=== PATIENT | female | born 1995 | race Two or more races ===

== ENCOUNTER 2017-07-23 18:09 | Inpatient (IN) | payer MEDICAID ==
[~2017-07-23] VITALS: Ht 154.9 cm; Wt 42.0 kg
[2017-07-23] MEDS ORDERED: insulin regular, human 10 units/0.1 ml syringe IV ONE (18:55)
[2017-07-23] MEDS ORDERED: normal saline 1000ML IV soln IVB ONE (18:55)
[2017-07-23 19:33] LABS: HCG SERUM QL NEGATIVE
[2017-07-23 19:35] LABS: ISTAT ANION GAP 19 (8-12); ISTAT BUN 18 mg/dL (6-19); ISTAT CL 115 mmol/L (99-107); ISTAT CREATININE 0.3 mg/dL (0.6-1.1); ISTAT HGB 17.3 g/dl (12.0-16.0); ISTAT Hct 51 %PCV (35-48); ISTAT IONIZED CALCIUM 1.26 mmol/L (1.03-1.32); ISTAT NA 140 mmol/L (135-145); ISTAT eGFR > 90 ML/MIN
[2017-07-23 20:04] LABS: ISTAT GLUCOSE 565 mg/dL (70-104); ISTAT TOTAL CO2 6 mmol/L (24-32)
[2017-07-23] MEDS ORDERED: insulin regular, human 100 UNIT in normal saline 100ml IV soln 100 ML IV PRN ×2 (20:05)
[2017-07-23 20:11] LABS: ALANINE AMINOTRANSFERASE 21 U/L (12-78); ALBUMIN 3.9 G/DL (3.4-5.0); ALBUMIN/GLOBULIN RATIO 0.8 (1.1-1.5); ALKALINE PHOSPHATASE 211 IU/L (20-180); ANION GAP 36 (8-16); ASPARTATE AMINO TRANSFERASE 15 U/L (10-37); BILIRUBIN,TOTAL 0.4 MG/DL (0.1-1.0); BLOOD UREA NITROGEN 18 MG/DL (7-18); BUN/CREATININE RATIO 18.6 (6.6-38.0); CALCIUM 8.9 MG/DL (8.5-10.1); CHLORIDE 98 MMOL/L (99-107); CREATININE 0.97 MG/DL (0.40-0.90); ETHANOL < 0.010 GM/DL (0.0-0.010); SODIUM 140 MMOL/L (135-145); TOTAL PROTEIN 8.8 G/DL (6.4-8.2); eGFR 74 ML/MIN
[2017-07-23 20:14] LABS: GLUCOSE 559 MG/DL (70-104)
[2017-07-23 20:15] LABS: POTASSIUM 3.7 MMOL/L (3.5-5.1)
[2017-07-23] MEDS ORDERED: morphine 4 MG/ML inj SYRINge IV ONE (20:15)
[2017-07-23 20:20] LABS: CLARITY,URINE CLEAR (Clear); COLOR,URINE YELLOW (Yellow); GLUCOSE, URINE >=1000 mg/dl (Neg); KETONES,URINE >=80 mg/dl (Neg); LEUKOCYTE ESTERASE ,URINE NEGATIVE (Neg); NITRITES, URINE NEGATIVE (Neg); OCCULT BLOOD,URINE NEGATIVE (Neg); PH,URINE 5.5 (4.8-8.0); PROTEIN,URINE 30 mg/dl (Neg); UROBILINOGEN,URINE 0.2 E.U/dL (0.2-1.0)
[2017-07-23 20:21] LABS: URINE AMPHETAMINE SCREEN NEGATIVE (Neg); URINE BARBITUATE SCREEN NEGATIVE (Neg); URINE BENZODIAZEPINES SCREEN NEGATIVE (Neg); URINE CANNABINOID SCREEN NEGATIVE (Neg); URINE COCAINE SCREEN NEGATIVE (Neg); URINE METHADONE SCREEN NEGATIVE (Neg); URINE OPIATE SCREEN NEGATIVE (Neg); URINE PHENCYCLIDINE SCREEN NEGATIVE (Neg)
[2017-07-23] MEDS ORDERED: insulin regular, human 10 units/0.1 ml syringe SQ PRN ×2 (20:30→21:10)
[2017-07-23] MEDS ORDERED: potassium CL 20mEq in D5-1/2NS 1,000 ML IV PRN (20:30)
[2017-07-23] MEDS ORDERED: normal saline 1000ml 1,000 ML IV SCH (20:30)
[2017-07-23 20:47] LABS: UA COLLECTION TYPE STRAIGHT CATH
[2017-07-23 20:55] LABS: ABG OXYGEN SATURATION 98.2 % (95-98); ABG PH (T) 7.066 (7.350-7.450); ABG PO2 (T) 138.8 mmHg (83-108); ALLEN'S TEST Negative; FCOHb 0.8 % (0.5-1.5); FMetHb 0.3 % (0.3-1.12); FO2Hb 97.1 % (94-100); PATIENT TEMPERATURE 36.5; RESPIRATORY RATE (OBSERVED) 32 b/min
[2017-07-23 20:58] LABS: BACTERIA,URINE NONE SEEN /HPF (Neg); RBC,URINE NONE SEEN /HPF (0-2); SQUAMOUS EPITHELIAL CELL,UR FEW /LPF (FEW); WBC,URINE 0-4 /HPF (0-4)
[2017-07-23] MEDS ORDERED: sodium bicarbonate (8.4%) inj. 50 MEQ in sodium chloride 0.45% 500ml 250 ML IV PRN (21:07)
[2017-07-23] MEDS: normal saline 1000ml 1,000 ML IV SCH ×4 (21:07→22:33)
[2017-07-23] MEDS ORDERED: insulin regular, DKA only 100 UNIT in normal saline 100ml IV soln 99 ML IV SCH ×2 (21:07)
[2017-07-23] MEDS ORDERED: sodium bicarbonate (8.4%) inj. 100 MEQ in sodium chloride 0.45% 500ml 500 ML IV PRN (21:07)
[2017-07-23] MEDS ORDERED: potassium Cl 40MEQ/NS 500ml 500 ML IV PRN ×2 (21:10)
[2017-07-23] MEDS ORDERED: potassium Cl 20 mEq SR tablet PO PRN (21:10)
[2017-07-23] MEDS ORDERED: sodium phosphate inj. 15 MMOL in dextrose 5%-water 150 ML IV PRN (21:10)
[2017-07-23] MEDS ORDERED: magnesium 2GM in 50ml NS 50 ML IV PRN (21:10)
[2017-07-23] MEDS ORDERED: ondansetron/PF 4mg/2ml inj IV PRN (21:10)
[2017-07-23] MEDS ORDERED: morphine 4 MG/ML inj SYRINge IV PRN (21:10)
[2017-07-23] MEDS ORDERED: ipratropium/albuterol 3ml nebule NEB PRN (21:10)
[2017-07-23] MEDS ORDERED: sodium phosphate inj. 30 MMOL in dextrose 5%-water 250 ML IV PRN (21:10)
[2017-07-23] MEDS ORDERED: acetaminophen 650mg rectal suppository RC PRN (21:10)
[2017-07-23] MEDS ORDERED: magnesium Cl slow-release 64mg tablet PO PRN (21:10)
[2017-07-23] MEDS: K, MAG and/or Phos replacement - Verify level? MC SCH (21:10)
[2017-07-23] MEDS ORDERED: magnesium 4gm in 100ml NS 100 ML IV PRN (21:10)
[2017-07-23] MEDS: insulin regular, DKA only 100 UNIT in normal saline 100ml IV soln 99 ML IV SCH ×2 (21:23)
[2017-07-23] MEDS: morphine 4 MG/ML inj SYRINge IV PRN ×2 (21:36→22:43)
[2017-07-23 22:00] VITALS: BP 154/97
[2017-07-23 22:01] LABS: ABG BASE EXCESS -27.6 mmol/L (-2.0-3.0); ABG HCO3 2.6 mmol/L (22.0-26.0); ABG OXYGEN SATURATION 97.2 % (95-98); ABG PCO2 (T) 11.3 mmHg (32.0-45.0); ABG PO2 (T) 117.8 mmHg (83-108); ALLEN'S TEST Positive; FCOHb 0.3 % (0.5-1.5); FMetHb 0.5 % (0.3-1.12); FO2Hb 96.4 % (94-100); PATIENT TEMPERATURE 36.5; RESPIRATORY RATE (OBSERVED) 32 b/min; TOTAL HEMOGLOBIN 15.2 G/dl (12.0-16.0)
[2017-07-23 22:34] LABS: BASOPHILS # (AUTO) 0.1 X10'3 (0-0.2); BASOPHILS % (AUTO) 0.5 % (0-1); EOSINOPHILS # (AUTO) 0.3 X10'3 (0-0.9); EOSINOPHILS % (AUTO) 1.4 % (0-6); HEMATOCRIT 44.5 % (35.0-45.0); LYMPHOCYTES # (AUTO) 1.8 X10'3 (1.1-4.8); LYMPHOCYTES % (AUTO) 7.5 % (21-51); MEAN CORPUSCULAR HEMOGLOBIN 30.9 PG (27.0-31.0); MEAN CORPUSCULAR HGB CONC 33.8 % (33.0-36.5); MEAN CORPUSCULAR VOLUME 91.4 FL (78-98); MEAN PLATELET VOLUME 8.1 FL (7.4-10.4); MONOCYTES # (AUTO) 0.9 X10'3 (0-0.9); MONOCYTES % (AUTO) 3.9 % (2-12); NEUTROPHILS # (AUTO) 20.3 X10'3 (1.8-7.7); NEUTROPHILS % (AUTO) 86.7 % (42-75); PLATELET COUNT 488 X10'3 (140-440); RED BLOOD COUNT 4.87 X10'6 (4.20-5.60); RED CELL DISTRIBUTION WIDTH 14.5 % (11.5-14.5); WHITE BLOOD COUNT 23.4 X10'3 (4.5-11.0)
[2017-07-23] MEDS ORDERED: sodium bicarbonate 1 MEQ/1 ml inj ONE (22:34)
[2017-07-23 22:45] LABS: INR 0.9 INR; PROTHROMBIN TIME 9.4 SECONDS (9.0-12.0)
[2017-07-23 22:48] LABS: ALBUMIN 3.4 G/DL (3.4-5.0); BLOOD UREA NITROGEN 18 MG/DL (7-18); BUN/CREATININE RATIO 22.5 (6.6-38.0); CALCIUM 7.4 MG/DL (8.5-10.1); CHLORIDE 108 MMOL/L (99-107); GLUCOSE 443 MG/DL (70-104); PHOSPHORUS 4.6 MG/DL (2.3-4.5); POTASSIUM 3.7 MMOL/L (3.5-5.1); SODIUM 145 MMOL/L (135-145); eGFR > 90 ML/MIN
[2017-07-23 23:00] VITALS: BP 155/112
[2017-07-23 23:02] LABS: ALANINE AMINOTRANSFERASE < 6 U/L (12-78); ALBUMIN/GLOBULIN RATIO 0.8 (1.1-1.5); ALKALINE PHOSPHATASE 186 IU/L (20-180); AMYLASE 88 U/L (25-115); ASPARTATE AMINO TRANSFERASE 10 U/L (10-37); BILIRUBIN,TOTAL 0.4 MG/DL (0.1-1.0); LIPASE 1063 U/L (73-393); TOTAL PROTEIN 7.7 G/DL (6.4-8.2)
[2017-07-23 23:03] LABS: ANION GAP 32 (8-16)
[2017-07-23 23:05] LABS: TOTAL CARBON DIOXIDE < 5 MMOL/L (24-32)
[2017-07-24] VITALS (24 sets, daily range): BP systolic 107–148; BP diastolic 55–92
[2017-07-24] MEDS ORDERED: INSU100C10 SQ
[2017-07-24] MEDS ORDERED: INSU100V9 SQ
[2017-07-24] MEDS: potassium CL 20mEq in D5-1/2NS 1,000 ML IV PRN ×2 (00:23→05:00)
[2017-07-24 01:08] LABS: CLARITY,URINE CLEAR (Clear); COLOR,URINE YELLOW (Yellow); GLUCOSE, URINE >=1000 mg/dl (Neg); KETONES,URINE >=80 mg/dl (Neg); LEUKOCYTE ESTERASE ,URINE NEGATIVE (Neg); NITRITES, URINE NEGATIVE (Neg); OCCULT BLOOD,URINE SMALL (Neg); PH,URINE 5.5 (4.8-8.0); PROTEIN,URINE 30 mg/dl (Neg); UROBILINOGEN,URINE 0.2 E.U/dL (0.2-1.0)
[2017-07-24 01:11] LABS: UA COLLECTION TYPE CLN CATCH MIDSTREAM
[2017-07-24 01:15] LABS: ABG BASE EXCESS -17.8 mmol/L (-2.0-3.0); ABG HCO3 7.6 mmol/L (22.0-26.0); ABG PCO2 (T) 19.1 mmHg (32.0-45.0); ABG PO2 (T) 111.1 mmHg (83-108); ALLEN'S TEST Positive; FCOHb 0.3 % (0.5-1.5); FMetHb 0.3 % (0.3-1.12); FO2Hb 97.4 % (94-100); PATIENT TEMPERATURE 37.1; TOTAL HEMOGLOBIN 14.3 G/dl (12.0-16.0)
[2017-07-24 01:18] LABS: SQUAMOUS EPITHELIAL CELL,UR FEW /LPF (FEW)
[2017-07-24 01:19] LABS: BACTERIA,URINE 2+ /HPF (Neg)
[2017-07-24 01:20] LABS: AMORPHOUS URATES 2+
[2017-07-24 01:21] LABS: FINE GRANULAR CAST 0-3 /LPF (NEGATIVE); MUCUS STRANDS FEW /LPF (Neg)
[2017-07-24] MEDS: K and/or MAG REPLACEMENT MC SCH ×2 (03:00→08:00)
[2017-07-24] MEDS ORDERED: fluconazole 150mg tablet PO ONE (04:20)
[2017-07-24] MEDS: normal saline 1000ml 1,000 ML IV SCH ×5 (05:07→21:07)
[2017-07-24 05:28] LABS: BASOPHILS % (AUTO) 0.3 % (0-1); EOSINOPHILS # (AUTO) 0.3 X10'3 (0-0.9); EOSINOPHILS % (AUTO) 1.5 % (0-6); HEMATOCRIT 36.8 % (35.0-45.0); HEMOGLOBIN 12.5 g/dl (12.0-16.0); LYMPHOCYTES # (AUTO) 3.2 X10'3 (1.1-4.8); LYMPHOCYTES % (AUTO) 16.9 % (21-51); MEAN CORPUSCULAR HEMOGLOBIN 31.1 PG (27.0-31.0); MEAN CORPUSCULAR HGB CONC 34.1 % (33.0-36.5); MEAN CORPUSCULAR VOLUME 91.1 FL (78-98); MEAN PLATELET VOLUME 8.1 FL (7.4-10.4); MONOCYTES # (AUTO) 0.8 X10'3 (0-0.9); MONOCYTES % (AUTO) 4.1 % (2-12); NEUTROPHILS # (AUTO) 14.5 X10'3 (1.8-7.7); NEUTROPHILS % (AUTO) 77.2 % (42-75); PLATELET COUNT 352 X10'3 (140-440); RED BLOOD COUNT 4.03 X10'6 (4.20-5.60); RED CELL DISTRIBUTION WIDTH 14.3 % (11.5-14.5); WHITE BLOOD COUNT 18.7 X10'3 (4.5-11.0)
[2017-07-24 05:41] LABS: PROTHROMBIN TIME 9.9 SECONDS (9.0-12.0)
[2017-07-24 05:53] LABS: ALANINE AMINOTRANSFERASE 14 U/L (12-78); ALBUMIN 2.6 G/DL (3.4-5.0); ALBUMIN/GLOBULIN RATIO 0.8 (1.1-1.5); ALKALINE PHOSPHATASE 110 IU/L (20-180); ANION GAP 16 (8-16); ASPARTATE AMINO TRANSFERASE 9 U/L (10-37); BILIRUBIN,TOTAL 0.2 MG/DL (0.1-1.0); BLOOD UREA NITROGEN 16 MG/DL (7-18); BUN/CREATININE RATIO 24.6 (6.6-38.0); CALCIUM 6.9 MG/DL (8.5-10.1); CHLORIDE 118 MMOL/L (99-107); CREATININE 0.65 MG/DL (0.40-0.90); GLUCOSE 160 MG/DL (70-104); MAGNESIUM 1.4 MG/DL (1.5-2.4); PHOSPHORUS 1.8 MG/DL (2.3-4.5); POTASSIUM 3.1 MMOL/L (3.5-5.1); SODIUM 148 MMOL/L (135-145); TOTAL PROTEIN 5.8 G/DL (6.4-8.2); eGFR > 90 ML/MIN
[2017-07-24 06:36] LABS: TOTAL CARBON DIOXIDE 14.4 MMOL/L (24-32)
[2017-07-24] MEDS: K, MAG and/or Phos replacement - Verify level? MC SCH (08:00)
[2017-07-24] MEDS ORDERED: insulin Lispro (HumaLOG) vial - multi-dose SQ SCH (09:00)
[2017-07-24 10:33] LABS: ALANINE AMINOTRANSFERASE 12 U/L (12-78); ALBUMIN 2.4 G/DL (3.4-5.0); ALBUMIN/GLOBULIN RATIO 0.8 (1.1-1.5); ALKALINE PHOSPHATASE 97 IU/L (20-180); ANION GAP 10 (8-16); ASPARTATE AMINO TRANSFERASE 9 U/L (10-37); BILIRUBIN,TOTAL 0.1 MG/DL (0.1-1.0); BLOOD UREA NITROGEN 14 MG/DL (7-18); BUN/CREATININE RATIO 23.7 (6.6-38.0); CALCIUM 7.3 MG/DL (8.5-10.1); CHLORIDE 114 MMOL/L (99-107); CREATININE 0.59 MG/DL (0.40-0.90); GLUCOSE 208 MG/DL (70-104); POTASSIUM 3.2 MMOL/L (3.5-5.1); SODIUM 143 MMOL/L (135-145); TOTAL CARBON DIOXIDE 18.6 MMOL/L (24-32); TOTAL PROTEIN 5.3 G/DL (6.4-8.2); eGFR > 90 ML/MIN
[2017-07-24] MEDS ORDERED: insulin glargine (Lantus) pen - multi-dose SQ ONE ×2 (10:55→21:00)
[2017-07-24] MEDS: insulin regular, DKA only 100 UNIT in normal saline 100ml IV soln 99 ML IV SCH ×2 (14:05)
[2017-07-24] MEDS ORDERED: dextrose 50%-water 50ml dispensing syringe IV PRN ×2 (15:00)
[2017-07-24] MEDS ORDERED: glucagon, human recombinant 1mg kit SUBCUT PRN (15:00)
[2017-07-24] MEDS ORDERED: dextrose ORAL solution 15 GM/59 ML bottle PO PRN ×2 (15:00)
[2017-07-24] MEDS ORDERED: MESSAGE TO PHARMACY PO ONE (15:00)
[2017-07-24 15:31] LABS: ABG PCO2 (T) < 10.0 mmHg (32.0-45.0)
[2017-07-24 17:09] LABS: ALANINE AMINOTRANSFERASE 13 U/L (12-78); ALBUMIN 2.3 G/DL (3.4-5.0); ALBUMIN/GLOBULIN RATIO 0.8 (1.1-1.5); ALKALINE PHOSPHATASE 95 IU/L (20-180); ANION GAP 11 (8-16); ASPARTATE AMINO TRANSFERASE 11 U/L (10-37); BILIRUBIN,TOTAL 0.2 MG/DL (0.1-1.0); BLOOD UREA NITROGEN 12 MG/DL (7-18); BUN/CREATININE RATIO 26.7 (6.6-38.0); CALCIUM 7.7 MG/DL (8.5-10.1); CHLORIDE 110 MMOL/L (99-107); CREATININE 0.45 MG/DL (0.40-0.90); GLUCOSE 218 MG/DL (70-104); POTASSIUM 3.7 MMOL/L (3.5-5.1); SODIUM 140 MMOL/L (135-145); TOTAL PROTEIN 5.3 G/DL (6.4-8.2); eGFR > 90 ML/MIN
[2017-07-24] MEDS: insulin Lispro (HumaLOG) vial - multi-dose SQ SCH (18:59)
[2017-07-24] MEDS ORDERED: INSULIN GLARGINE HUM REC ANLOG 28 UNIT SQ SCH (21:00)
[2017-07-24] MEDS ORDERED: insulin glargine (Lantus) pen - multi-dose SQ SCH (21:00)
[2017-07-24 22:50] LABS: ALANINE AMINOTRANSFERASE 13 U/L (12-78); ALBUMIN 2.4 G/DL (3.4-5.0); ALBUMIN/GLOBULIN RATIO 0.8 (1.1-1.5); ALKALINE PHOSPHATASE 101 IU/L (20-180); ANION GAP 12 (8-16); ASPARTATE AMINO TRANSFERASE 13 U/L (10-37); BILIRUBIN,TOTAL 0.2 MG/DL (0.1-1.0); BLOOD UREA NITROGEN 12 MG/DL (7-18); BUN/CREATININE RATIO 25.5 (6.6-38.0); CALCIUM 7.7 MG/DL (8.5-10.1); CHLORIDE 108 MMOL/L (99-107); CREATININE 0.47 MG/DL (0.40-0.90); GLUCOSE 256 MG/DL (70-104); SODIUM 140 MMOL/L (135-145); TOTAL CARBON DIOXIDE 20.1 MMOL/L (24-32); TOTAL PROTEIN 5.4 G/DL (6.4-8.2); eGFR > 90 ML/MIN
[2017-07-24] MEDS: potassium Cl 20 mEq SR tablet PO PRN (22:58)
[2017-07-25] VITALS (12 sets, daily range): BP systolic 105–135; BP diastolic 58–83
[2017-07-25] MEDS: normal saline 1000ml 1,000 ML IV SCH ×3 (01:07→08:14)
[2017-07-25] MEDS: potassium Cl 20 mEq SR tablet PO PRN (04:35)
[2017-07-25 05:32] LABS: BASOPHILS % (AUTO) 0.4 % (0-1); EOSINOPHILS # (AUTO) 0.1 X10'3 (0-0.9); EOSINOPHILS % (AUTO) 1.8 % (0-6); HEMATOCRIT 33.8 % (35.0-45.0); HEMOGLOBIN 11.4 g/dl (12.0-16.0); LYMPHOCYTES # (AUTO) 2.8 X10'3 (1.1-4.8); LYMPHOCYTES % (AUTO) 45.1 % (21-51); MEAN CORPUSCULAR HEMOGLOBIN 30.8 PG (27.0-31.0); MEAN CORPUSCULAR HGB CONC 33.7 % (33.0-36.5); MEAN CORPUSCULAR VOLUME 91.1 FL (78-98); MONOCYTES # (AUTO) 0.4 X10'3 (0-0.9); MONOCYTES % (AUTO) 6.1 % (2-12); NEUTROPHILS # (AUTO) 2.9 X10'3 (1.8-7.7); NEUTROPHILS % (AUTO) 46.6 % (42-75); PLATELET COUNT 269 X10'3 (140-440); RED BLOOD COUNT 3.71 X10'6 (4.20-5.60); RED CELL DISTRIBUTION WIDTH 14.9 % (11.5-14.5); WHITE BLOOD COUNT 6.2 X10'3 (4.5-11.0)
[2017-07-25 05:41] LABS: ALANINE AMINOTRANSFERASE 14 U/L (12-78); ALBUMIN 2.2 G/DL (3.4-5.0); ALBUMIN/GLOBULIN RATIO 0.7 (1.1-1.5); ALKALINE PHOSPHATASE 87 IU/L (20-180); ANION GAP 11 (8-16); ASPARTATE AMINO TRANSFERASE 12 U/L (10-37); BILIRUBIN,TOTAL 0.2 MG/DL (0.1-1.0); BLOOD UREA NITROGEN 9 MG/DL (7-18); BUN/CREATININE RATIO 24.3 (6.6-38.0); CALCIUM 7.7 MG/DL (8.5-10.1); CHLORIDE 111 MMOL/L (99-107); CREATININE 0.37 MG/DL (0.40-0.90); GLUCOSE 203 MG/DL (70-104); MAGNESIUM 1.7 MG/DL (1.5-2.4); POTASSIUM 3.4 MMOL/L (3.5-5.1); SODIUM 144 MMOL/L (135-145); TOTAL CARBON DIOXIDE 22.1 MMOL/L (24-32); TOTAL PROTEIN 5.2 G/DL (6.4-8.2); eGFR > 90 ML/MIN
[2017-07-25] MEDS: K and/or MAG REPLACEMENT MC SCH (06:57)
[2017-07-25] MEDS: K, MAG and/or Phos replacement - Verify level? MC SCH (06:57)
[2017-07-25] MEDS: insulin Lispro (HumaLOG) vial - multi-dose SQ SCH (08:42)
[2017-07-25] MEDS ORDERED: pneumococcal 23-VAL P-sac vacc 25 mcg/0.5ml vial IMVAC ONE (10:00)
== END 2017-07-25 12:11 | disposition home or self-care (01) | DRG 420 ==
LOC: ER 18:10 → ED HOLD 21:07 → EDBEDREQ 21:40 → CICU 2S 21:55
PROVIDERS: ADMIT Internal Medicine Critical Care Medicine; ATTEND Internal Medicine Critical Care Medicine
DX: E10.10 Type 1 diabetes mellitus with ketoacidosis without coma (principal); N76.0 Acute vaginitis; Z23 Encounter for immunization; Z79.4 Long term (current) use of insulin; Z82.49 Family history of ischemic heart disease and other diseases of the circulatory system; Z83.3 Family history of diabetes mellitus
CPT/HCPCS: 36415; 36600; 71045; 74176; 80047; 80053; 80305; 80320; 81001; 82009; 82150; 82803; 82948; 83690; 83735; 84100; 84443; 84484; 84703; 85018; 85025; 85610; 87070; 87088; 90732; 94760; 96361; 96374; 99291; A4353; A6213; C1758; J1815; J2270; J2405; J3475; J3480; J7030; J7060

== ENCOUNTER 2017-11-28 09:20 | Inpatient (IN) | payer OTHER, MEDICAID ==
[2017-11-28] VITALS (10 sets, daily range): BP systolic 99–147; BP diastolic 52–100
[~2017-11-28] VITALS: Ht 157.5 cm; Wt 51.5 kg
[~2017-11-28 09:20] MED LIST: INSU100C10 SQ; INSU100V9 SQ
[2017-11-28] MEDS ORDERED: ondansetron/PF 4mg/2ml inj IV ONE (09:30)
[2017-11-28] MEDS ORDERED: insulin regular, human 10 units/0.1 ml syringe SQ PRN ×2 (09:30→13:05)
[2017-11-28] MEDS ORDERED: normal saline 1000ml 1,000 ML IV SCH ×2 (09:49→13:02)
[2017-11-28] MEDS ORDERED: potassium CL 20mEq in D5-1/2NS 1,000 ML IV PRN (09:49)
[2017-11-28] MEDS ORDERED: potassium Cl 20 mEq SR tablet PO PRN ×3 (09:50→13:05)
[2017-11-28] MEDS ORDERED: potassium Cl 40MEQ/NS 500ml 500 ML IV PRN ×3 (09:50→21:35)
[2017-11-28 09:52] LABS: BASOPHILS % (AUTO) 0.3 % (0-1); EOSINOPHILS % (AUTO) 0.2 % (0-6); HEMATOCRIT 51.3 % (35.0-45.0); HEMOGLOBIN 17.1 g/dl (12.0-16.0); LYMPHOCYTES # (AUTO) 3.8 X10'3 (1.1-4.8); LYMPHOCYTES % (AUTO) 25.7 % (21-51); MEAN CORPUSCULAR HEMOGLOBIN 31.5 PG (27.0-31.0); MEAN CORPUSCULAR HGB CONC 33.3 % (33.0-36.5); MEAN CORPUSCULAR VOLUME 94.6 FL (78-98); MEAN PLATELET VOLUME 8.4 FL (7.4-10.4); MONOCYTES # (AUTO) 0.5 X10'3 (0-0.9); MONOCYTES % (AUTO) 3.2 % (2-12); NEUTROPHILS # (AUTO) 10.4 X10'3 (1.8-7.7); NEUTROPHILS % (AUTO) 70.6 % (42-75); PLATELET COUNT 499 X10'3 (140-440); RED BLOOD COUNT 5.42 X10'6 (4.20-5.60); RED CELL DISTRIBUTION WIDTH 14.8 % (11.5-14.5); WHITE BLOOD COUNT 14.7 X10'3 (4.5-11.0)
[2017-11-28] MEDS: normal saline 1000ml 1,000 ML IV SCH ×2 (09:57→09:58)
[2017-11-28 10:09] LABS: HCG SERUM QL NEGATIVE
[2017-11-28 10:10] LABS: ABG OXYGEN SATURATION 98.1 % (95-98); ABG PO2 (T) 158.6 mmHg (83-108); ALLEN'S TEST Positive; FCOHb 0.1 % (0.5-1.5); FMetHb 0.5 % (0.3-1.12); FO2Hb 97.5 % (94-100); TOTAL HEMOGLOBIN 16.7 G/dl (12.0-16.0)
[2017-11-28 10:15] LABS: ALBUMIN 4.2 G/DL (3.4-5.0); BLOOD UREA NITROGEN 20 MG/DL (7-18); BUN/CREATININE RATIO 19.6 (6.6-38.0); CALCIUM 9.9 MG/DL (8.5-10.1); CHLORIDE 101 MMOL/L (99-107); CREATINE KINASE 38 U/L (26-192); CREATININE 1.02 MG/DL (0.40-0.90); PHOSPHORUS 6.4 MG/DL (2.3-4.5); POTASSIUM 4.2 MMOL/L (3.5-5.1); SODIUM 139 MMOL/L (135-145); eGFR 70 ML/MIN
[2017-11-28] MEDS ORDERED: piperacillin/tazo 3.375gm/50ml 50 ML IV ONE (10:20)
[2017-11-28] MEDS ORDERED: vancomycin/NS 1 GM ADD-VANTAGE 250 ML IV ONE (10:20)
[2017-11-28] MEDS ORDERED: sodium bicarbonate (8.4%) inj. 100 MEQ in sodium chloride 0.45% 1,000 ML IV SCH (10:20)
[2017-11-28 10:21] LABS: INR 0.9 INR; PARTIAL THROMBOPLASTIN TIME 27 SECONDS (22-32); PROTHROMBIN TIME 9.1 SECONDS (9.0-12.0)
[2017-11-28 10:22] LABS: ANION GAP 33 (8-16)
[2017-11-28 10:24] LABS: GLUCOSE 688 MG/DL (70-104)
[2017-11-28 10:25] LABS: TOTAL CARBON DIOXIDE < 5 MMOL/L (24-32)
[2017-11-28 10:32] LABS: LIPASE 150 U/L (73-393)
[2017-11-28] MEDS ORDERED: sodium bicarbonate (8.4%) 1 mEq/ml syringe IV ONE (10:40)
[2017-11-28 10:50] LABS: URINE AMPHETAMINE SCREEN NEGATIVE (Neg); URINE BARBITUATE SCREEN NEGATIVE (Neg); URINE BENZODIAZEPINES SCREEN NEGATIVE (Neg); URINE CANNABINOID SCREEN NEGATIVE (Neg); URINE COCAINE SCREEN NEGATIVE (Neg); URINE METHADONE SCREEN NEGATIVE (Neg); URINE OPIATE SCREEN NEGATIVE (Neg); URINE PHENCYCLIDINE SCREEN NEGATIVE (Neg)
[2017-11-28] MEDS ORDERED: Potassium Cl inj 20 MEQ in normal saline 1000ml 990 ML IV SCH (10:50)
[2017-11-28 10:57] LABS: CLARITY,URINE CLEAR (Clear); COLOR,URINE YELLOW (Yellow); GLUCOSE, URINE >=1000 mg/dl (Neg); KETONES,URINE >=80 mg/dl (Neg); LEUKOCYTE ESTERASE ,URINE NEGATIVE (Neg); NITRITES, URINE NEGATIVE (Neg); OCCULT BLOOD,URINE NEGATIVE (Neg); PH,URINE 5.5 (4.8-8.0); PROTEIN,URINE 30 mg/dl (Neg); UROBILINOGEN,URINE 0.2 E.U/dL (0.2-1.0)
[2017-11-28] MEDS: insulin regular, DKA only 100 UNIT in normal saline 100ml IV soln 99 ML IV SCH ×2 (10:57)
[2017-11-28 10:59] LABS: UA COLLECTION TYPE FOLEY CATH
[2017-11-28 11:07] LABS: AMORPHOUS URATES 1+; BACTERIA,URINE FEW /HPF (Neg); MUCUS STRANDS NONE SEEN /LPF (Neg); RBC,URINE NONE SEEN /HPF (0-2); SQUAMOUS EPITHELIAL CELL,UR NONE SEEN /LPF (FEW); WBC,URINE NONE SEEN /HPF (0-4)
[2017-11-28] MEDS ORDERED: INSU100I29 SQ (11:50)
[2017-11-28] MEDS: potassium Cl 20mEq in NS 1,000 ML IV SCH ×2 (12:33→21:39)
[2017-11-28 12:36] LABS: HEMOGLOBIN A1C 10.5 % (4.5-6.2)
[2017-11-28] MEDS ORDERED: sodium bicarbonate (8.4%) inj. 50 MEQ in dextrose 5% water 500ml 250 ML IV PRN (13:02)
[2017-11-28] MEDS ORDERED: sodium bicarbonate (8.4%) inj. 100 MEQ in dextrose 5% water 500ml 500 ML IV PRN (13:02)
[2017-11-28] MEDS ORDERED: insulin regular, DKA only 100 UNIT in normal saline 100ml IV soln 99 ML IV SCH ×2 (13:02)
[2017-11-28] MEDS ORDERED: sodium phosphate inj. 30 MMOL in dextrose 5%-water 250 ML IV PRN (13:05)
[2017-11-28] MEDS ORDERED: dextrose 50%-water 50ml dispensing syringe IV PRN (13:05)
[2017-11-28] MEDS ORDERED: magnesium 4gm in 100ml NS 100 ML IV PRN (13:05)
[2017-11-28] MEDS ORDERED: morphine 2 MG/ML inj. syringe IV PRN (13:05)
[2017-11-28] MEDS ORDERED: magnesium 1gm/100ml D5W IVPB 100 ML IV PRN (13:05)
[2017-11-28] MEDS ORDERED: Neutra Phos packet PO PRN (13:05)
[2017-11-28] MEDS ORDERED: acetaminophen 325mg tablet PO PRN ×2 (13:05)
[2017-11-28] MEDS ORDERED: insulin regular, human inj. 100 UNITS in normal saline 100ml IV soln 100 ML IV SCH ×2 (13:05)
[2017-11-28] MEDS ORDERED: sodium phosphate inj. 15 MMOL in dextrose 5%-water 150 ML IV PRN (13:05)
[2017-11-28] MEDS ORDERED: magnesium Cl slow-release 64mg tablet PO PRN (13:05)
[2017-11-28] MEDS ORDERED: magnesium hydroxide 30ml (MOM) UD suspension PO PRN (13:05)
[2017-11-28] MEDS: ondansetron/PF 4mg/2ml inj IV PRN (13:54)
[2017-11-28] MEDS: morphine 4 MG/ML inj SYRINge IV PRN ×2 (13:54→16:57)
[2017-11-28 14:30] LABS: ALBUMIN 3.3 G/DL (3.4-5.0); AMYLASE 56 U/L (25-115); BLOOD UREA NITROGEN 22 MG/DL (7-18); BUN/CREATININE RATIO 26.2 (6.6-38.0); CALCIUM 8.1 MG/DL (8.5-10.1); CHLORIDE 109 MMOL/L (99-107); CREATININE 0.84 MG/DL (0.40-0.90); LDL CHOLESTEROL 130 MG/DL (50-100); PHOSPHORUS 4.3 MG/DL (2.3-4.5); POTASSIUM 3.5 MMOL/L (3.5-5.1); SODIUM 144 MMOL/L (135-145); eGFR 87 ML/MIN
[2017-11-28 14:32] LABS: ANION GAP 30 (8-16)
[2017-11-28 14:34] LABS: GLUCOSE 548 MG/DL (70-104); TOTAL CARBON DIOXIDE < 5 MMOL/L (24-32)
[2017-11-28] MEDS: insulin Lispro (HumaLOG) vial - multi-dose SQ SCH (15:53)
[2017-11-28 16:05] LABS: ALBUMIN 2.8 G/DL (3.4-5.0); ANION GAP 25 (8-16); BLOOD UREA NITROGEN 20 MG/DL (7-18); CALCIUM 7.8 MG/DL (8.5-10.1); CHLORIDE 114 MMOL/L (99-107); CREATININE 0.77 MG/DL (0.40-0.90); GLUCOSE 340 MG/DL (70-104); MAGNESIUM 1.5 MG/DL (1.5-2.4); POTASSIUM 3.6 MMOL/L (3.5-5.1); SODIUM 146 MMOL/L (135-145); eGFR > 90 ML/MIN
[2017-11-28] MEDS: potassium CL 20mEq in D5-1/2NS 1,000 ML IV PRN ×2 (17:10→23:36)
[2017-11-28 19:01] LABS: ABG BASE EXCESS -14.9 mmol/L (-2.0-3.0); ABG OXYGEN SATURATION 96.6 % (95-98); ABG PCO2 (T) 26.8 mmHg (32.0-45.0); ABG PH (T) 7.233 (7.350-7.450); ABG PO2 (T) 91.5 mmHg (83-108); ALLEN'S TEST Positive; FCOHb 0.3 % (0.5-1.5); FMetHb 0.3 % (0.3-1.12); PATIENT TEMPERATURE 37.1; RESPIRATORY RATE (OBSERVED) 12 b/min; TOTAL HEMOGLOBIN 12.3 G/dl (12.0-16.0)
[2017-11-28] MEDS ORDERED: morphine 4 MG/ML inj SYRINge IV ONE (19:35)
[2017-11-28] MEDS: diatr meglu/diatrizoate 30ml oral sol.-(3 dose) bottle PO SCH (20:11)
[2017-11-28] MEDS: piperacillin/tazo 3.375gm/50ml 50 ML IV SCH (20:11)
[2017-11-28] MEDS: heparin, porcine 5000 units/ml vial SQ SCH (20:12)
[2017-11-28 21:04] LABS: ALBUMIN 2.3 G/DL (3.4-5.0); ANION GAP 13 (8-16); BLOOD UREA NITROGEN 19 MG/DL (7-18); CALCIUM 7.5 MG/DL (8.5-10.1); CHLORIDE 114 MMOL/L (99-107); CREATININE 0.73 MG/DL (0.40-0.90); GLUCOSE 202 MG/DL (70-104); MAGNESIUM 1.3 MG/DL (1.5-2.4); PHOSPHORUS 1.9 MG/DL (2.3-4.5); SODIUM 144 MMOL/L (135-145); TOTAL CARBON DIOXIDE 16.6 MMOL/L (24-32); eGFR > 90 ML/MIN
[2017-11-28] MEDS: VANCOMYCIN 750MG IV in NS 250 ML IV SCH (21:12)
[2017-11-28 21:20] LABS: POTASSIUM 2.7 MMOL/L (3.5-5.1)
[2017-11-28] MEDS: potassium Cl 40MEQ/NS 500ml 500 ML IV PRN (22:23)
[2017-11-28] MEDS ORDERED: SODIUM BICARBONATE IV SCH (23:25)
[2017-11-28] MEDS ORDERED: WATER IV SCH (23:25)
[2017-11-28] MEDS ORDERED: DEXTROSE 5% IV SCH (23:25)
[2017-11-29] VITALS (12 sets, daily range): BP systolic 90–127; BP diastolic 54–90
[2017-11-29] MEDS: piperacillin/tazo 3.375gm/50ml 50 ML IV SCH ×2 (02:06→08:11)
[2017-11-29] MEDS: diatr meglu/diatrizoate 30ml oral sol.-(3 dose) bottle PO SCH ×2 (03:13→08:08)
[2017-11-29] MEDS: morphine 4 MG/ML inj SYRINge IV PRN (03:13)
[2017-11-29] MEDS: ondansetron/PF 4mg/2ml inj IV PRN (03:30)
[2017-11-29] MEDS ORDERED: DEXTROSE 10 % AND 0.45 % NACL 1,000 ML IV SCH (04:05)
[2017-11-29] MEDS ORDERED: morphine 4 MG/ML inj SYRINge IM ONE (04:10)
[2017-11-29] MEDS: VANCOMYCIN 750MG IV in NS 250 ML IV SCH (04:15)
[2017-11-29] MEDS ORDERED: morphine 4 MG/ML inj SYRINge IV ONE (04:30)
[2017-11-29 04:40] LABS: BASOPHILS % (AUTO) 0.3 % (0-1); EOSINOPHILS # (AUTO) 0.2 X10'3 (0-0.9); EOSINOPHILS % (AUTO) 1.4 % (0-6); HEMATOCRIT 33.7 % (35.0-45.0); HEMOGLOBIN 11.8 g/dl (12.0-16.0); LYMPHOCYTES # (AUTO) 1.9 X10'3 (1.1-4.8); LYMPHOCYTES % (AUTO) 14.9 % (21-51); MEAN CORPUSCULAR HEMOGLOBIN 31.7 PG (27.0-31.0); MEAN CORPUSCULAR HGB CONC 35.2 % (33.0-36.5); MEAN CORPUSCULAR VOLUME 90.3 FL (78-98); MEAN PLATELET VOLUME 7.4 FL (7.4-10.4); MONOCYTES % (AUTO) 7.6 % (2-12); NEUTROPHILS # (AUTO) 9.5 X10'3 (1.8-7.7); NEUTROPHILS % (AUTO) 75.8 % (42-75); PLATELET COUNT 330 X10'3 (140-440); RED BLOOD COUNT 3.73 X10'6 (4.20-5.60); RED CELL DISTRIBUTION WIDTH 14.5 % (11.5-14.5); WHITE BLOOD COUNT 12.6 X10'3 (4.5-11.0)
[2017-11-29] MEDS: insulin regular, DKA only 100 UNIT in normal saline 100ml IV soln 99 ML IV SCH ×2 (04:48)
[2017-11-29 04:54] LABS: ALANINE AMINOTRANSFERASE 13 U/L (12-78); ALBUMIN 2.2 G/DL (3.4-5.0); ALBUMIN/GLOBULIN RATIO 0.8 (1.1-1.5); ALKALINE PHOSPHATASE 78 IU/L (20-180); ANION GAP 10 (8-16); ASPARTATE AMINO TRANSFERASE 10 U/L (10-37); BILIRUBIN,TOTAL 0.2 MG/DL (0.1-1.0); BLOOD UREA NITROGEN 13 MG/DL (7-18); BUN/CREATININE RATIO 22.8 (6.6-38.0); CALCIUM 7.6 MG/DL (8.5-10.1); CHLORIDE 114 MMOL/L (99-107); CREATININE 0.57 MG/DL (0.40-0.90); GLUCOSE 159 MG/DL (70-104); MAGNESIUM 1.3 MG/DL (1.5-2.4); PHOSPHORUS 2.4 MG/DL (2.3-4.5); POTASSIUM 3.3 MMOL/L (3.5-5.1); SODIUM 143 MMOL/L (135-145); TOTAL PROTEIN 4.8 G/DL (6.4-8.2); eGFR > 90 ML/MIN
[2017-11-29] MEDS: potassium Cl 40MEQ/NS 500ml 500 ML IV PRN (05:17)
[2017-11-29] MEDS: potassium Cl 20mEq in NS 1,000 ML IV SCH (05:23)
[2017-11-29] MEDS: insulin Lispro (HumaLOG) vial - multi-dose SQ SCH ×5 (07:53→21:21)
[2017-11-29] MEDS: pantoprazole 40 MG vial IV SCH (08:03)
[2017-11-29] MEDS ORDERED: iohexol 300mg/ml 100ml inj. ONE (08:36)
[2017-11-29] MEDS ORDERED: dextrose ORAL solution 15 GM/59 ML bottle PO PRN ×2 (09:05)
[2017-11-29] MEDS ORDERED: MESSAGE TO PHARMACY PO ONE (09:05)
[2017-11-29] MEDS ORDERED: glucagon, human recombinant 1mg kit SUBCUT PRN (09:05)
[2017-11-29] MEDS ORDERED: dextrose 50%-water 50ml dispensing syringe IV PRN ×2 (09:05)
[2017-11-29] MEDS: heparin, porcine 5000 units/ml vial SQ SCH ×2 (09:33→20:18)
[2017-11-29] MEDS: potassium cl 20mEq in 1/2 NS 1,000 ML IV SCH ×2 (10:51→20:18)
[2017-11-29 13:12] LABS: MAGNESIUM 2.2 MG/DL (1.5-2.4)
[2017-11-29 13:14] LABS: POTASSIUM 2.9 MMOL/L (3.5-5.1)
[2017-11-29] MEDS: potassium Cl 20 mEq SR tablet PO PRN ×3 (13:16→20:18)
[2017-11-29] MEDS ORDERED: VANCOMYCIN LEVEL IV ONE (19:30)
[2017-11-30 02:02] LABS: HEMATOCRIT 30.8 % (35.0-45.0); HEMOGLOBIN 10.9 g/dl (12.0-16.0); MEAN CORPUSCULAR HEMOGLOBIN 32.4 PG (27.0-31.0); MEAN CORPUSCULAR HGB CONC 35.4 % (33.0-36.5); MEAN CORPUSCULAR VOLUME 91.5 FL (78-98); MEAN PLATELET VOLUME 7.7 FL (7.4-10.4); PLATELET COUNT 245 X10'3 (140-440); RED BLOOD COUNT 3.37 X10'6 (4.20-5.60); RED CELL DISTRIBUTION WIDTH 14.1 % (11.5-14.5); WHITE BLOOD COUNT 6.1 X10'3 (4.5-11.0)
[2017-11-30 02:21] LABS: GLUCOSE 291 MG/DL (70-104)
[2017-11-30 02:39] LABS: PLATELET ESTIMATE NORMAL; TOTAL CELLS COUNTED 100
[2017-11-30 02:47] LABS: ALANINE AMINOTRANSFERASE 12 U/L (12-78); ALBUMIN/GLOBULIN RATIO 0.7 (1.1-1.5); ALKALINE PHOSPHATASE 98 IU/L (20-180); ASPARTATE AMINO TRANSFERASE 16 U/L (10-37); BILIRUBIN,TOTAL 0.2 MG/DL (0.1-1.0); BLOOD UREA NITROGEN 10 MG/DL (7-18); BUN/CREATININE RATIO 24.4 (6.6-38.0); CALCIUM 7.3 MG/DL (8.5-10.1); CHLORIDE 111 MMOL/L (99-107); CREATININE 0.41 MG/DL (0.40-0.90); MAGNESIUM 1.6 MG/DL (1.5-2.4); PHOSPHORUS 2.2 MG/DL (2.3-4.5); POTASSIUM 3.6 MMOL/L (3.5-5.1); SODIUM 142 MMOL/L (135-145); TOTAL PROTEIN 4.8 G/DL (6.4-8.2); eGFR > 90 ML/MIN
[2017-11-30 02:48] LABS: ANION GAP 15 (8-16); TOTAL CARBON DIOXIDE 16.4 MMOL/L (24-32)
[2017-11-30] MEDS: potassium cl 20mEq in 1/2 NS 1,000 ML IV SCH ×2 (05:34→07:22)
[2017-11-30 06:00] VITALS: BP 110/71
[2017-11-30] MEDS: insulin Lispro (HumaLOG) vial - multi-dose SQ SCH ×2 (09:00→14:11)
[2017-11-30] MEDS: heparin, porcine 5000 units/ml vial SQ SCH (09:02)
[2017-11-30] MEDS: pantoprazole 40 MG vial IV SCH (09:03)
[2017-11-30 13:46] LABS: ANION GAP 10 (8-16); BLOOD UREA NITROGEN 8 MG/DL (7-18); BUN/CREATININE RATIO 12.9 (6.6-38.0); CALCIUM 7.4 MG/DL (8.5-10.1); CHLORIDE 108 MMOL/L (99-107); CREATININE 0.62 MG/DL (0.40-0.90); GLUCOSE 250 MG/DL (70-104); PHOSPHORUS 3.1 MG/DL (2.3-4.5); POTASSIUM 3.7 MMOL/L (3.5-5.1); SODIUM 142 MMOL/L (135-145); TOTAL CARBON DIOXIDE 24.1 MMOL/L (24-32); eGFR > 90 ML/MIN
[2017-11-30] MEDS ORDERED: PANT40TA4 PO (14:13)
[2017-12-01] MEDS ORDERED: pantoprazole 40mg Tablet.DR PO SCH (07:30)
[2017-12-03 07:53] LABS: ABG PCO2 (T) < 10.0 mmHg (32.0-45.0)
== END 2017-11-30 15:46 | disposition home or self-care (01) | DRG 637 ==
LOC: ER 09:20 → ICU 2S 13:02 → CMPBEDREQ 19:46 → ORTHO 4S 11-29 15:35
PROVIDERS: ADMIT Internal Medicine Critical Care Medicine; ATTEND Internal Medicine Critical Care Medicine
PROC: BW211ZZ Computerized Tomography (CT Scan) of Abdomen and Pelvis using Low Osmolar Contrast (ICD-10-PCS; principal; 2017-11-29)
DX: E10.10 Type 1 diabetes mellitus with ketoacidosis without coma (principal); E43 Unspecified severe protein-calorie malnutrition; G93.41 Metabolic encephalopathy; Z79.4 Long term (current) use of insulin; Z82.49 Family history of ischemic heart disease and other diseases of the circulatory system; Z83.3 Family history of diabetes mellitus; Z79.899 Other long term (current) drug therapy; Z68.20 Body mass index [BMI] 20.0-20.9, adult
CPT/HCPCS: 36415; 36600; 71045; 74177; 80048; 80053; 80069; 80305; 81001; 82150; 82550; 82803; 82948; 83036; 83605; 83690; 83721; 83735; 84100; 84132; 84443; 84703; 85018; 85025; 85610; 85730; 87040; 87070; 93005; 96365; 96368; 96372; 96375; 99291; A6257; A6258; C1758; C9113; J1644; J1815; J2270; J2405; J2543; J3370; J3475; J3480; J7030; J7070; Q9963; Q9967

== ENCOUNTER 2018-01-02 17:56 | Inpatient (IN) | payer OTHER, MEDICAID ==
[~2018-01-02] VITALS: Ht 154.9 cm; Wt 52.0 kg
[~2018-01-02 17:56] MED LIST changes: +INSU100I29 SQ; -INSU100V9 SQ; +PANT40TA4 PO
[2018-01-02] MEDS ORDERED: acetaminophen 325mg tablet PO ONE (18:10)
[2018-01-02] MEDS ORDERED: ketorolac trometh. 30mg/ml inj. IV ONE (18:15)
[2018-01-02] MEDS ORDERED: ondansetron/PF 4mg/2ml inj IV ONE (18:15)
[2018-01-02] MEDS ORDERED: normal saline 1000ml 1,000 ML IV ONE ×2 (18:15→18:35)
[2018-01-02] MEDS ORDERED: dextrose ORAL solution 15 GM/59 ML bottle PO ONE (19:00)
[2018-01-02 19:10] LABS: HEMATOCRIT 33.4 % (35.0-45.0); HEMOGLOBIN 11.2 g/dl (12.0-16.0); MEAN CORPUSCULAR HEMOGLOBIN 30.2 PG (27.0-31.0); MEAN CORPUSCULAR HGB CONC 33.6 % (33.0-36.5); MEAN CORPUSCULAR VOLUME 89.7 FL (78-98); MEAN PLATELET VOLUME 8.3 FL (7.4-10.4); PLATELET COUNT 108 X10'3 (140-440); RED BLOOD COUNT 3.72 X10'6 (4.20-5.60); RED CELL DISTRIBUTION WIDTH 13.8 % (11.5-14.5); WHITE BLOOD COUNT 3.8 X10'3 (4.5-11.0)
[2018-01-02 19:20] LABS: URINE HCG NEGATIVE (NEG)
[2018-01-02 19:24] LABS: ALANINE AMINOTRANSFERASE 323 U/L (12-78); ALKALINE PHOSPHATASE 268 IU/L (20-180); ANION GAP 8 (8-16); ASPARTATE AMINO TRANSFERASE 484 U/L (10-37); BILIRUBIN,TOTAL 4.5 MG/DL (0.1-1.0); BLOOD UREA NITROGEN 13 MG/DL (7-18); BUN/CREATININE RATIO 22.4 (6.6-38.0); CALCIUM 7.2 MG/DL (8.5-10.1); CHLORIDE 97 MMOL/L (99-107); CREATININE 0.58 MG/DL (0.40-0.90); GLUCOSE 125 MG/DL (70-104); POTASSIUM 3.6 MMOL/L (3.5-5.1); SODIUM 131 MMOL/L (135-145); TOTAL CARBON DIOXIDE 26.5 MMOL/L (24-32); eGFR > 90 ML/MIN
[2018-01-02 19:32] LABS: PROTHROMBIN TIME 10.7 SECONDS (9.0-12.0)
[2018-01-02 19:41] LABS: ALBUMIN/GLOBULIN RATIO 0.6 (1.1-1.5); TOTAL PROTEIN 5.3 G/DL (6.4-8.2)
[2018-01-02 19:42] LABS: CLARITY,URINE SLIGHTLY CLOUDY (Clear); COLOR,URINE ORANGE (Yellow); UA COLLECTION TYPE CLN CATCH MIDSTREAM
[2018-01-02 19:45] LABS: BACTERIA,URINE 2+ /HPF (Neg); RBC,URINE 0-2 /HPF (0-2)
[2018-01-02 19:46] LABS: SQUAMOUS EPITHELIAL CELL,UR FEW /LPF (FEW)
[2018-01-02] MEDS: dextrose 5%-water 1,000 ML IV SCH ×3 (19:50→20:08)
[2018-01-02] MEDS ORDERED: ketorolac tromethamine 15mg/ml inj. IV ONE (19:55)
[2018-01-02 20:02] LABS: ACETAMINOPHEN < 2.0 UG/ML (10-30); ETHANOL < 0.010 GM/DL (0.0-0.010)
[2018-01-02] MEDS: dextrose 5%-normal saline 1,000 ML IV SCH (20:10)
[2018-01-02 20:16] LABS: URINE AMPHETAMINE SCREEN NEGATIVE (Neg); URINE BARBITUATE SCREEN NEGATIVE (Neg); URINE BENZODIAZEPINES SCREEN NEGATIVE (Neg); URINE CANNABINOID SCREEN NEGATIVE (Neg); URINE COCAINE SCREEN NEGATIVE (Neg); URINE METHADONE SCREEN NEGATIVE (Neg); URINE OPIATE SCREEN NEGATIVE (Neg); URINE PHENCYCLIDINE SCREEN NEGATIVE (Neg)
[2018-01-02] MEDS ORDERED: piperacillin/tazo 3.375gm/50ml 50 ML IV SCH (21:10)
[2018-01-02 21:24] LABS: LIPASE 57 U/L (73-393)
[2018-01-02] MEDS ORDERED: MESSAGE TO PHARMACY PO ONE (21:25)
[2018-01-02] MEDS ORDERED: magnesium 1gm/100ml D5W IVPB 100 ML IV PRN (21:25)
[2018-01-02] MEDS ORDERED: potassium Cl 20 mEq SR tablet PO PRN ×2 (21:25)
[2018-01-02] MEDS ORDERED: mag hydrox/Alum hydrox/simeth 30ml oral suspension PO PRN (21:25)
[2018-01-02] MEDS ORDERED: dextrose 50%-water 50ml dispensing syringe IV PRN ×2 (21:25)
[2018-01-02] MEDS ORDERED: magnesium hydroxide 30ml (MOM) UD suspension PO PRN (21:25)
[2018-01-02] MEDS ORDERED: glucagon, human recombinant 1mg kit SUBCUT PRN (21:25)
[2018-01-02] MEDS ORDERED: magnesium 4gm in 100ml NS 100 ML IV PRN (21:25)
[2018-01-02] MEDS ORDERED: dextrose ORAL solution 15 GM/59 ML bottle PO PRN ×2 (21:25)
[2018-01-02] MEDS ORDERED: potassium Cl 40MEQ/NS 500ml 500 ML IV PRN ×2 (21:25)
[2018-01-02] MEDS ORDERED: AMOX-580 PO (22:01)
[2018-01-02 22:10] VITALS: BP 106/62
[2018-01-02] MEDS: normal saline 1000ml 1,000 ML IV SCH (23:18)
[2018-01-03] VITALS: BP 115/71
[2018-01-03] MEDS: dextrose 5%-water 1,000 ML IV SCH ×2 (00:50→05:20)
[2018-01-03] MEDS: dextrose 5%-normal saline 1,000 ML IV SCH ×2 (01:10→05:20)
[2018-01-03] MEDS: normal saline 1000ml 1,000 ML IV SCH ×5 (01:25→22:18)
[2018-01-03] MEDS ORDERED: morphine 2 MG/ML inj. syringe IV PRN (01:35)
[2018-01-03] MEDS: morphine 2 MG/ML inj. syringe IV PRN ×4 (01:43→23:47)
[2018-01-03] MEDS: ondansetron/PF 4mg/2ml inj IV PRN ×2 (01:50→08:26)
[2018-01-03] MEDS: piperacillin/tazo 3.375gm/50ml 50 ML IV SCH ×3 (02:54→15:47)
[2018-01-03 05:43] LABS: HEMATOCRIT 33.6 % (35.0-45.0); HEMOGLOBIN 11.1 g/dl (12.0-16.0); MEAN CORPUSCULAR HEMOGLOBIN 29.8 PG (27.0-31.0); MEAN CORPUSCULAR VOLUME 90.2 FL (78-98); MEAN PLATELET VOLUME 9.1 FL (7.4-10.4); PLATELET COUNT 82 X10'3 (140-440); RED BLOOD COUNT 3.73 X10'6 (4.20-5.60); RED CELL DISTRIBUTION WIDTH 14.2 % (11.5-14.5); WHITE BLOOD COUNT 4.1 X10'3 (4.5-11.0)
[2018-01-03 05:52] LABS: ALANINE AMINOTRANSFERASE 350 U/L (12-78); ALBUMIN 1.9 G/DL (3.4-5.0); ALKALINE PHOSPHATASE 227 IU/L (20-180); ANION GAP 11 (8-16); ASPARTATE AMINO TRANSFERASE 614 U/L (10-37); BILIRUBIN,TOTAL 4.5 MG/DL (0.1-1.0); BLOOD UREA NITROGEN 11 MG/DL (7-18); BUN/CREATININE RATIO 19.3 (6.6-38.0); CHLORIDE 101 MMOL/L (99-107); CREATININE 0.57 MG/DL (0.40-0.90); GLUCOSE 151 MG/DL (70-104); HDL CHOLESTEROL 8 MG/DL (35-60); LDL CHOLESTEROL 36 MG/DL (50-100); MAGNESIUM 1.6 MG/DL (1.5-2.4); POTASSIUM 3.2 MMOL/L (3.5-5.1); SODIUM 135 MMOL/L (135-145); TOTAL CARBON DIOXIDE 23.4 MMOL/L (24-32); eGFR > 90 ML/MIN
[2018-01-03 06:00] LABS: ALBUMIN/GLOBULIN RATIO 0.6 (1.1-1.5); CHOL/HDL RATIO 11.3 (0.00-4.99); CHOLESTEROL 90 MG/DL (0-200); TRIGLYCERIDES 277 MG/DL (20-135)
[2018-01-03 06:34] LABS: PLATELET ESTIMATE DECREASED; TOTAL CELLS COUNTED 100
[2018-01-03] MEDS: acetaminophen 325mg tablet PO PRN ×2 (07:09→15:58)
[2018-01-03 07:30] VITALS: BP 113/66
[2018-01-03] MEDS: K and/or MAG REPLACEMENT MC SCH (08:00)
[2018-01-03] MEDS ORDERED: LIDOcaine 1% 30ml vial 5 ML in potassium Cl 40MEQ/NS 500ml 500 ML IV PRN (09:50)
[2018-01-03 12:07] VITALS: BP 96/46
[2018-01-03 12:39] VITALS: BP 90/50
[2018-01-03 16:42] LABS: EOSINOPHILS % (MANUAL) 0 % (0-6)
[2018-01-03 16:47] LABS: MONOTEST POSITIVE (Neg)
[2018-01-03 16:50] LABS: SMUDGE CELLS FEW
[2018-01-03 16:57] LABS: BASOPHILS % (MANUAL) 1 % (0-1); LYMPHOCYTES % (MANUAL) 79 % (21-51); METAMYLEOCYTES% (MANUAL) 1 % (0-0); NEUTROPHILS % (MANUAL) 6 % (42-75)
[2018-01-03 16:58] LABS: BANDS% (MANUAL) 4 % (0-10); MONOCYTES % (MANUAL) 9 % (2-12)
[2018-01-03 17:09] LABS: ACANTHOCYTES 3+; BURR CELLS 2+
[2018-01-03 17:10] LABS: POLYCHROMASIA 1+; SPHEROCYTES FEW
[2018-01-03 17:54] LABS: ALANINE AMINOTRANSFERASE 521 U/L (12-78); ALBUMIN 1.7 G/DL (3.4-5.0); ALKALINE PHOSPHATASE 219 IU/L (20-180); BILIRUBIN,DIRECT 4.8 MG/DL (0-0.3)
[2018-01-03 17:58] LABS: ALBUMIN/GLOBULIN RATIO 0.5 (1.1-1.5); ASPARTATE AMINO TRANSFERASE 1240 U/L (10-37); TOTAL PROTEIN 4.8 G/DL (6.4-8.2)
[2018-01-03] MEDS ORDERED: ibuprofen tablet 400 MG TABLET PO PRN (18:00)
[2018-01-03 19:00] VITALS: BP 109/65
[2018-01-03 23:00] VITALS: BP 125/84
[2018-01-04] VITALS (11 sets, daily range): BP systolic 92–116; BP diastolic 47–73
[2018-01-04] MEDS: normal saline 1000ml 1,000 ML IV SCH ×3 (05:52→13:05)
[2018-01-04 06:16] LABS: HBSAG SCREEN Negative (Negative); HEP A AB, IGM Negative (Negative); HEP B CORE AB, IGM Negative (Negative); HEPATITIS C ANTIBODY <0.1 s/co ratio (0.0-0.9)
[2018-01-04 07:03] LABS: HEMATOCRIT 31.2 % (35.0-45.0); HEMOGLOBIN 10.5 g/dl (12.0-16.0); MEAN CORPUSCULAR HEMOGLOBIN 30.1 PG (27.0-31.0); MEAN CORPUSCULAR HGB CONC 33.7 % (33.0-36.5); MEAN CORPUSCULAR VOLUME 89.3 FL (78-98); MEAN PLATELET VOLUME 8.9 FL (7.4-10.4); PLATELET COUNT 56 X10'3 (140-440); RED BLOOD COUNT 3.49 X10'6 (4.20-5.60); RED CELL DISTRIBUTION WIDTH 14.6 % (11.5-14.5); WHITE BLOOD COUNT 2.9 X10'3 (4.5-11.0)
[2018-01-04 07:07] LABS: ALANINE AMINOTRANSFERASE 838 U/L (12-78); ALBUMIN 1.7 G/DL (3.4-5.0); ALKALINE PHOSPHATASE 247 IU/L (20-180); ANION GAP 12 (8-16); BLOOD UREA NITROGEN 12 MG/DL (7-18); BUN/CREATININE RATIO 21.1 (6.6-38.0); CALCIUM 6.8 MG/DL (8.5-10.1); CHLORIDE 104 MMOL/L (99-107); CREATININE 0.57 MG/DL (0.40-0.90); GLUCOSE 204 MG/DL (70-104); SODIUM 137 MMOL/L (135-145); TOTAL CARBON DIOXIDE 20.7 MMOL/L (24-32); eGFR > 90 ML/MIN
[2018-01-04 07:08] LABS: MAGNESIUM 1.9 MG/DL (1.5-2.4)
[2018-01-04 07:13] LABS: ALBUMIN/GLOBULIN RATIO 0.6 (1.1-1.5); BILIRUBIN,DIRECT 5.8 MG/DL (0-0.3); PHOSPHORUS 2.2 MG/DL (2.3-4.5); POTASSIUM 3.5 MMOL/L (3.5-5.1); TOTAL PROTEIN 4.7 G/DL (6.4-8.2)
[2018-01-04 07:26] LABS: TOTAL CELLS COUNTED 100
[2018-01-04 07:27] LABS: PLATELET ESTIMATE DECREASED
[2018-01-04 07:28] LABS: BURR CELLS 2+; PLATELET COUNT 57 X10'3 (140-440); SMUDGE CELLS 2+
[2018-01-04 07:29] LABS: PROTHROMBIN TIME 10.4 SECONDS (9.0-12.0)
[2018-01-04 07:30] LABS: D-DIMER 10.89 MG/L FEU (0-0.50); PARTIAL THROMBOPLASTIN TIME 29 SECONDS (22-32)
[2018-01-04] MEDS: K and/or MAG REPLACEMENT MC SCH (08:00)
[2018-01-04 08:26] LABS: LACTATE DEHYDROGENASE 2507 U/L (81-234)
[2018-01-04] MEDS: morphine 2 MG/ML inj. syringe IV PRN (08:29)
[2018-01-04 08:31] LABS: ASPARTATE AMINO TRANSFERASE 2239 U/L (10-37)
[2018-01-04] MEDS: ondansetron/PF 4mg/2ml inj IV PRN (09:35)
[2018-01-04] MEDS ORDERED: VANCOMYCIN 750MG IV in NS 250 ML IV SCH (10:00)
[2018-01-04] MEDS ORDERED: CADD PCA waste documentation MC SCH (10:40)
[2018-01-04] MEDS: HYDROmorphone/NS 1 mg/ml CADD 50 ML IV SCH ×5 (11:00→17:00)
[2018-01-04 11:42] LABS: ALANINE AMINOTRANSFERASE 904 U/L (12-78); ALBUMIN 1.5 G/DL (3.4-5.0); ALKALINE PHOSPHATASE 279 IU/L (20-180); ANION GAP 16 (8-16); BILIRUBIN,TOTAL 6.3 MG/DL (0.1-1.0); BLOOD UREA NITROGEN 12 MG/DL (7-18); BUN/CREATININE RATIO 22.2 (6.6-38.0); CALCIUM 6.7 MG/DL (8.5-10.1); CHLORIDE 104 MMOL/L (99-107); CREATININE 0.54 MG/DL (0.40-0.90); GLUCOSE 216 MG/DL (70-104); SODIUM 136 MMOL/L (135-145); eGFR > 90 ML/MIN
[2018-01-04] MEDS ORDERED: SINCALIDE IV ONE (12:00)
[2018-01-04] MEDS ORDERED: NORMAL SALINE IV ONE (12:00)
[2018-01-04 12:07] LABS: ALBUMIN/GLOBULIN RATIO 0.5 (1.1-1.5); POTASSIUM 3.8 MMOL/L (3.5-5.1); TOTAL PROTEIN 4.5 G/DL (6.4-8.2)
[2018-01-04 12:08] LABS: ASPARTATE AMINO TRANSFERASE 2375 U/L (10-37)
[2018-01-04] MEDS ORDERED: diphenhydrAMINE 25mg capsule PO PRN (12:40)
[2018-01-04] MEDS ORDERED: insulin Lispro (HumaLOG) vial - multi-dose SQ SCH (13:55)
[2018-01-04 15:22] LABS: HIV ANTIBODY 1&2 RAPID NON-REACTIVE (Neg)
[2018-01-04 15:46] LABS: FERRITIN 13097 NG/ML (8-252)
[2018-01-04] MEDS ORDERED: cefepime 1GM/NS ADD-VANTAGE 100 ML IV SCH (16:00)
[2018-01-04 17:01] LABS: ALANINE AMINOTRANSFERASE 895 U/L (12-78); ALBUMIN 1.7 G/DL (3.4-5.0); ALKALINE PHOSPHATASE 327 IU/L (20-180); ANION GAP 18 (8-16); BILIRUBIN,TOTAL 6.9 MG/DL (0.1-1.0); BLOOD UREA NITROGEN 13 MG/DL (7-18); BUN/CREATININE RATIO 21.3 (6.6-38.0); CALCIUM 6.8 MG/DL (8.5-10.1); CHLORIDE 104 MMOL/L (99-107); CREATININE 0.61 MG/DL (0.40-0.90); GLUCOSE 276 MG/DL (70-104); SODIUM 138 MMOL/L (135-145); TOTAL CARBON DIOXIDE 15.6 MMOL/L (24-32); eGFR > 90 ML/MIN
[2018-01-04 17:08] LABS: ALBUMIN/GLOBULIN RATIO 0.6 (1.1-1.5); ASPARTATE AMINO TRANSFERASE 1925 U/L (10-37); POTASSIUM 4.2 MMOL/L (3.5-5.1); TOTAL PROTEIN 4.7 G/DL (6.4-8.2)
[2018-01-04 17:28] LABS: FERRITIN 13019 NG/ML (8-252)
[2018-01-04] MEDS ORDERED: vancomycin/NS 1 GM ADD-VANTAGE 250 ML IV SCH (20:00)
[2018-01-05 15:13] LABS: EBV AB VCA, IGG <18.0 U/mL (0.0-17.9); EBV AB VCA, IGM <36.0 U/mL (0.0-35.9); EBV NUCLEAR ANTIGEN AB, IGG <18.0 U/mL (0.0-17.9)
[2018-01-07 18:38] LABS: BANDS% (MANUAL) 17 % (0-10); LYMPHOCYTES % (MANUAL) 30 % (21-51); MONOCYTES % (MANUAL) 6 % (2-12); NEUTROPHILS % (MANUAL) 16 % (42-75); REACTIVE LYMPHOCYTES % 31 % (0-0); TOTAL CELLS COUNTED 100
[2018-01-07 18:40] LABS: PLATELET ESTIMATE DECREASED
[2018-01-07 18:41] LABS: BURR CELLS 1+; POIKILOCYTOSIS 1+; SMUDGE CELLS 2+
== END 2018-01-04 17:50 | disposition short-term general hospital (02) | DRG 871 ==
LOC: ER 17:57 → SUR 3N 21:25 → CMPBEDREQ 22:32 → PCU 3S 01-03 18:14 → ICU 2S 01-04 07:19 → PCU 3S 01-04 07:48 → ICU 2S 01-04 08:51
PROVIDERS: ADMIT Family Medicine; ATTEND Internal Medicine Critical Care Medicine
PROC: 02HV33Z Insertion of Infusion Device into Superior Vena Cava, Percutaneous Approach (ICD-10-PCS; principal; 2018-01-04)
DX: A41.9 Sepsis, unspecified organism (principal); D65 Disseminated intravascular coagulation [defibrination syndrome]; K72.00 Acute and subacute hepatic failure without coma; N39.0 Urinary tract infection, site not specified; E44.0 Moderate protein-calorie malnutrition; D61.818 Other pancytopenia; K80.50 Calculus of bile duct without cholangitis or cholecystitis without obstruction; B27.90 Infectious mononucleosis, unspecified without complication; D72.820 Lymphocytosis (symptomatic); E10.9 Type 1 diabetes mellitus without complications; E78.1 Pure hyperglyceridemia; Z90.410 Acquired total absence of pancreas; Z88.8 Allergy status to other drugs, medicaments and biological substances; Z79.899 Other long term (current) drug therapy; Z79.4 Long term (current) use of insulin; Z87.891 Personal history of nicotine dependence; Z83.3 Family history of diabetes mellitus; Z82.49 Family history of ischemic heart disease and other diseases of the circulatory system; Z68.21 Body mass index [BMI] 21.0-21.9, adult
CPT/HCPCS: 36415; 71045; 74176; 76700; 78226; 80053; 80061; 80076; 80305; 80320; 80329; 81001; 81025; 82248; 82390; 82728; 82948; 83605; 83615; 83690; 83735; 84100; 84145; 85007; 85025; 85379; 85384; 85610; 85651; 85730; 86308; 86663; 86664; 86665; 86703; 86705; 86706; 86709; 86803; 87040; 87070; 87088; 87340; 87502; 87503; 93005; 96361; 96374; 96375; 96376; 99285; A9537; J1170; J1885; J2270; J2405; J2543; J3370; J3480; J3490; J7030; J7042; J7070; Q0163